=== PATIENT | male | born 1960 | race Caucasian/White ===

== ENCOUNTER 2017-03-21 06:05 | Day surgery (SDC) | payer OTHER ==
[~2017-03-21 06:05] MED LIST: COZAAR25 MG PO; PLAVIX75 MG PO; SIMBICORT; SYMBICORT 16010.2 GM IH
== END 2017-03-21 14:50 | disposition home or self-care (01) ==
LOC: CIR.AMB 06:05
DX: C19 Malignant neoplasm of rectosigmoid junction (principal); K92.1 Melena
CPT/HCPCS: 36561; C1751

== ENCOUNTER 2019-09-18 01:08 | Inpatient (IN) | payer OTHER ==
[~2019-09-18] VITALS: Ht 149.9 cm; Wt 72.6 kg
[2019-09-19] MEDS ORDERED: SYMBICORT 80/10.2 GM ×2 (08:08→08:14)
[2019-09-19] MEDS ORDERED: POLY119PG PO (18:40)
[2019-09-19] MEDS ORDERED: DURAGESIC1 EAC1 TOP (18:41)
[2019-09-19] MEDS ORDERED: PROTONIX40 MG PO (18:41)
[2019-09-19] MEDS ORDERED: PEPCID AC20 MG PO (18:46)
== END 2019-09-19 21:10 | disposition home or self-care (01) | DRG 375 ==
LOC: ER 01:08 → SEC-K 12:02 → SURH 12:02
PROVIDERS: ADMIT Colon & Rectal Surgery; ATTEND Colon & Rectal Surgery
DX: C78.4 Secondary malignant neoplasm of small intestine (principal); C18.7 Malignant neoplasm of sigmoid colon; C78.7 Secondary malignant neoplasm of liver and intrahepatic bile duct; C78.6 Secondary malignant neoplasm of retroperitoneum and peritoneum; J44.9 Chronic obstructive pulmonary disease, unspecified; J45.30 Mild persistent asthma, uncomplicated

== ENCOUNTER 2019-10-02 18:11 | Emergency (ER) | payer OTHER ==
[~2019-10-02] VITALS: Ht 185.4 cm; Wt 72.6 kg
[~2019-10-02 18:11] MED LIST changes: +DURAGESIC1 EAC1 TOP; +PEPCID AC20 MG PO; +POLY119PG PO; +PROTONIX40 MG PO; +SYMBICORT 80/10.2 GM
== END 2019-10-03 17:37 | disposition home or self-care (01) ==
LOC: ER 18:11
DX: R14.0 Abdominal distension (gaseous) (principal); K56.699 Other intestinal obstruction unspecified as to partial versus complete obstruction; C18.8 Malignant neoplasm of overlapping sites of colon; C78.6 Secondary malignant neoplasm of retroperitoneum and peritoneum

== ENCOUNTER 2019-10-12 19:38 | Inpatient (IN) | payer OTHER ==
[~2019-10-12] VITALS: Ht 185.4 cm; Wt 150.0 kg
== END 2019-10-18 00:52 | disposition other institution (70) | DRG 375 ==
LOC: ER 19:38 → SURG 10-13 07:59
PROVIDERS: ADMIT Colon & Rectal Surgery; ATTEND Colon & Rectal Surgery
PROC: BW21ZZZ Computerized Tomography (CT Scan) of Abdomen and Pelvis (ICD-10-PCS; principal; 2019-10-15)
DX: C78.6 Secondary malignant neoplasm of retroperitoneum and peritoneum (principal); K56.690 Other partial intestinal obstruction; C19 Malignant neoplasm of rectosigmoid junction; C78.7 Secondary malignant neoplasm of liver and intrahepatic bile duct; J98.11 Atelectasis; J45.30 Mild persistent asthma, uncomplicated; G47.33 Obstructive sleep apnea (adult) (pediatric); Z20.828 Contact with and (suspected) exposure to other viral communicable diseases